=== PATIENT | male | born 1940 | race Caucasian/White ===

== ENCOUNTER 2020-05-21 13:43 | Emergency (ER) | payer OTHER, MEDICARE ==
[~2020-05-21] VITALS: Ht 172.7 cm; Wt 80.0 kg
[2020-05-21 14:25] LABS: BASOPHILS % (AUTO) 0.1 % (0-1); EOSINOPHILS % (AUTO) 0 % (0-6); HEMATOCRIT 29.8 % (42.0-52.0); HEMOGLOBIN 9.7 g/dl (14.0-17.9); LYMPHOCYTES # (AUTO) 0.5 X10'3 (1.1-4.8); LYMPHOCYTES % (AUTO) 3.7 % (21-51); MEAN CORPUSCULAR HEMOGLOBIN 33.3 PG (27.0-31.0); MEAN CORPUSCULAR HGB CONC 32.6 g/dL (33.0-36.5); MEAN CORPUSCULAR VOLUME 102.3 FL (78-98); MEAN PLATELET VOLUME 7.7 FL (7.4-10.4); MONOCYTES # (AUTO) 0.7 X10'3 (0-0.9); MONOCYTES % (AUTO) 4.8 % (2-12); NEUTROPHILS # (AUTO) 13.5 X10'3 (1.8-7.7); NEUTROPHILS % (AUTO) 91.4 % (42-75); PLATELET COUNT 232 X10'3 (140-440); RED BLOOD COUNT 2.91 X10'6 (4.70-6.10); RED CELL DISTRIBUTION WIDTH 15.9 % (11.5-14.5); WHITE BLOOD COUNT 14.7 X10'3 (4.5-11.0)
--- NOTE | 2020-05-21 14:28 | NUR ---
PT TO [facility]
[2020-05-21 14:40] LABS: ALANINE AMINOTRANSFERASE 55 U/L (12-78); ALBUMIN 2.6 G/DL (3.4-5.0); ALBUMIN/GLOBULIN RATIO 0.8 (1.1-1.5); ALKALINE PHOSPHATASE 78 IU/L (46-116); ANION GAP 10 (8-16); ASPARTATE AMINO TRANSFERASE 13 U/L (10-37); BILIRUBIN,TOTAL 0.4 MG/DL (0.1-1.0); BLOOD UREA NITROGEN 24 MG/DL (7-18); BUN/CREATININE RATIO 18.6 (5.4-32.0); CALCIUM 8.3 MG/DL (8.5-10.1); CHLORIDE 108 MMOL/L (99-107); CREATININE 1.29 MG/DL (0.60-1.10); GLUCOSE 105 MG/DL (70-104); POTASSIUM 3.6 MMOL/L (3.5-5.1); SODIUM 139 MMOL/L (135-145); TOTAL CARBON DIOXIDE 20.7 MMOL/L (24-32); TOTAL PROTEIN 5.9 G/DL (6.4-8.2); eGFR 54 ML/MIN
[2020-05-21 15:00] LABS: GIANT PLATELET FEW; PLATELET ESTIMATE NORMAL
[2020-05-21 15:43] VITALS: BP 125/65
[2020-05-21] MEDS ORDERED: AMOX-117 PO (15:54)
== END 2020-05-21 16:05 | disposition home or self-care (01) ==
LOC: ER 13:44
DX: T17.908A Unspecified foreign body in respiratory tract, part unspecified causing other injury, initial encounter (principal); R11.10 Vomiting, unspecified; Z85.9 Personal history of malignant neoplasm, unspecified; Z79.2 Long term (current) use of antibiotics; X58.XXXA Exposure to other specified factors, initial encounter; Y93.89 Activity, other specified; Y92.89 Other specified places as the place of occurrence of the external cause; Y99.8 Other external cause status
CPT/HCPCS: 36415; 71045; 71250; 80053; 85025; 99285

== ENCOUNTER 2020-06-04 12:45 | Emergency (ER) | payer OTHER, MEDICARE ==
[~2020-06-04] VITALS: Ht 172.7 cm; Wt 88.2 kg
[2020-06-04] MEDS ORDERED: LIDOcaine 2% 10ml TOPICAL JELLY (Urojet) TP ONE (13:35)
[2020-06-04] MEDS ORDERED: HYDROcodone/acetaminophen 10/325mg tab PO ONE (13:35)
[2020-06-04 13:51] LABS: CLARITY,URINE SLIGHTLY CLOUDY (Clear); COLOR,URINE AMBER (Yellow); GLUCOSE, URINE NEGATIVE (Neg); KETONES,URINE NEGATIVE (Neg); LEUKOCYTE ESTERASE ,URINE NEGATIVE (Neg); NITRITES, URINE POSITIVE (Neg); OCCULT BLOOD,URINE NEGATIVE (Neg); PROTEIN,URINE 30 mg/dl (Neg)
[2020-06-04 13:58] LABS: UA COLLECTION TYPE CLN CATCH MIDSTREAM
[2020-06-04 14:07] LABS: BASOPHILS % (AUTO) 0.2 % (0-1); HEMOGLOBIN 10.1 g/dl (14.0-17.9); LYMPHOCYTES # (AUTO) 0.7 X10'3 (1.1-4.8); MONOCYTES # (AUTO) 0.5 X10'3 (0-0.9); MONOCYTES % (AUTO) 7.5 % (2-12)
[2020-06-04 14:08] LABS: BACTERIA,URINE 1+ /HPF (Neg); RBC,URINE 0-2 /HPF (0-2); SQUAMOUS EPITHELIAL CELL,UR FEW /LPF (FEW); WBC,URINE 0-4 /HPF (0-4)
[2020-06-04 14:09] LABS: EOSINOPHILS % (AUTO) 0.2 % (0-6); HEMATOCRIT 30.1 % (42.0-52.0); LYMPHOCYTES % (AUTO) 9.8 % (21-51); MEAN CORPUSCULAR HEMOGLOBIN 33.6 PG (27.0-31.0); MEAN CORPUSCULAR HGB CONC 33.5 g/dL (33.0-36.5); MEAN CORPUSCULAR VOLUME 100.3 FL (78-98); MEAN PLATELET VOLUME 8.3 FL (7.4-10.4); NEUTROPHILS # (AUTO) 5.6 X10'3 (1.8-7.7); NEUTROPHILS % (AUTO) 82.3 % (42-75); PLATELET COUNT 127 X10'3 (140-440); RED CELL DISTRIBUTION WIDTH 15.1 % (11.5-14.5); WHITE BLOOD COUNT 6.8 X10'3 (4.5-11.0)
[2020-06-04 14:09] LABS: TRANSITIONAL EPI CELLS,URINE FEW /HPF
[2020-06-04 14:17] LABS: ALANINE AMINOTRANSFERASE 44 U/L (12-78); ALBUMIN 2.6 G/DL (3.4-5.0); ALBUMIN/GLOBULIN RATIO 0.8 (1.1-1.5); ALKALINE PHOSPHATASE 89 IU/L (46-116); ANION GAP 13 (8-16); ASPARTATE AMINO TRANSFERASE 21 U/L (10-37); BILIRUBIN,TOTAL 0.6 MG/DL (0.1-1.0); BLOOD UREA NITROGEN 22 MG/DL (7-18); BUN/CREATININE RATIO 14.7 (5.4-32.0); CALCIUM 8.5 MG/DL (8.5-10.1); CHLORIDE 106 MMOL/L (99-107); GLUCOSE 83 MG/DL (70-104); POTASSIUM 3.2 MMOL/L (3.5-5.1); SODIUM 140 MMOL/L (135-145); TOTAL CARBON DIOXIDE 21.2 MMOL/L (24-32); TOTAL PROTEIN 5.8 G/DL (6.4-8.2); eGFR 45 ML/MIN
--- NOTE | 2020-06-04 15:25 | NUR ---
after multiple attempts to reach the for discharge, she was finally able to be reached. pa spoke to in details about discharge plans, helping get home health set up to help with pts needs.
[2020-06-04] MEDS ORDERED: ondansetron/PF 4mg/2ml inj IV ONE (15:40)
[2020-06-04] MEDS ORDERED: morphine 4 MG/ML inj SYRINge IV ONE (15:40)
[2020-06-04] MEDS ORDERED: CEPH250T PO (17:28)
[2020-06-04] MEDS ORDERED: HYDR-4383 PO (17:28)
[2020-06-04] MEDS ORDERED: normal saline 1000ML IV soln IVB ONE (17:35)
--- NOTE | 2020-06-04 19:20 | NUR ---
called who states that her daughter is leaving now to picking supervisor pt, will be approx 45 min-1 hour. pt aware of dc plans and resting peacefully
[2020-06-04 20:55] VITALS: BP 106/78
[2020-06-07] MEDS ORDERED: NYST1000 PO (16:15)
[2020-06-07] MEDS ORDERED: DIAZ10TA5 PO (16:15)
[2020-06-07] MEDS ORDERED: MEGE400O6 PO (16:17)
[2020-06-07] MEDS ORDERED: DEXA4TAB68 PO (16:17)
[2020-06-07] MEDS ORDERED: CARV12.545 PO (16:17)
[2020-06-07] MEDS ORDERED: LEVO100T PO (16:17)
[2020-06-07] MEDS ORDERED: OMEP40CA13 PO (16:17)
[2020-06-07] MEDS ORDERED: HYDR-3965 PO (16:20)
[2020-06-07] MEDS ORDERED: CEPH250C2 PO (16:20)
[2020-06-07] MEDS ORDERED: OMEP20CA15 PO (16:31)
[2020-06-07] MEDS ORDERED: ALBU2.5V12 NEB (16:31)
== END 2020-06-04 20:35 | disposition home or self-care (01) ==
LOC: ER 12:46
DX: C41.2 Malignant neoplasm of vertebral column (principal); R33.9 Retention of urine, unspecified; M54.2 Cervicalgia; Z85.9 Personal history of malignant neoplasm, unspecified; Z79.2 Long term (current) use of antibiotics; Z79.899 Other long term (current) drug therapy
CPT/HCPCS: 36415; 51702; 72148; 80053; 81001; 83605; 85025; 96374; 96375; 99284; J2270; J2405; J7030; 96361